=== PATIENT | male | born 1935 | race African-American/Black ===

== ENCOUNTER 2020-02-11 21:13 | Inpatient (IN) | payer MEDICARE, OTHER ==
[2020-02-11] MEDS ORDERED: Acetaminophen 500 MG TAB ONE (22:45)
[2020-02-12] MEDS ORDERED: Ondansetron PF 4 MG/2 ML Vial IVP PRN (00:03)
[2020-02-12] MEDS ORDERED: Acetaminophen 325 MG TAB PO PRN (00:03)
[2020-02-12] MEDS ORDERED: Ondansetron ODT 4 MG TAB SL PRN (00:03)
[2020-02-12 00:17] VITALS: BMI 25.0
[2020-02-12] MEDS ORDERED: HumaLOG 300 UNITS/3 ML VIAL SC PRN (01:23)
[2020-02-12] MEDS ORDERED: Dextrose 5% in Water 1,000 ML IV PRN (01:23)
[2020-02-12] MEDS ORDERED: Dextrose 50% Abboject 50 ML SYRINGE SLOW IVP PRN (01:23)
--- NOTE | 2020-02-12 01:32 | PDOC.HHP ---
Hospitalist HPI - History of Present Illness SOB x 2 days History of Present Illness: PCP: Dr. Cottrell The patient is a 84/M with PMH HTN, HLD, DMII, and anemia that presents to the ER for the above complaint. The patient reports developing sob for the past 2 days with associated productive cough, fever and chills. Denies any chest pain, heart palpitations or lower extremity swelling. Denies any wheezing or orthopnea. Denies any recent travel or any sick contacts. Denies any abdominal pain, nausea, vomiting or diarrhea. Has no other complaints at this time. ED Course: [place] T 102.2F, BP 160/67, HR 63, RR 19, Sp02 94% RA Placed on 2L NC improved to 98% RA EKG atrial paced 61 bpm CXR patchy interstitial prominences Chest CT cannot rule out COVID-19 LA 3.2 WBC 4.4 Flu negative COVID pending Na 140 K 5.4 CO2 25 BUN 18 Creatinine 0.87 GFR 90 BNP 81.6 trop negative Given: Rocephin 2gm IVPB Azith 500 mg IVPB 2L NS at [place] [facility] Tylenol 1gm Allergies: NKDA Home Medications: 1. Losartan 50mg po q am 2. ASA 81 mg po q am 3. Simvastatin 10mg po q hs 4. Metformin 500mg po BID Hospitalist ROS - Review of Systems Constitutional: reports: fever, chills, malaise Eyes: denies: pain, vision change, conjunctivae inflammation, eyelid inflammation, redness, other ENT: denies: ear pain, ear discharge, nose pain, nose discharge, nose congestion , mouth pain, mouth swelling, throat pain, throat swelling, other Respiratory: reports: cough, shortness of breath, sputum. denies: hemoptysis Cardiovascular: denies: chest pain, palpitations, orthopnea, paroxysmal noc. dyspnea, edema, light headedness, other Gastrointestinal: denies: nausea, vomiting, abdominal pain, diarrhea, constipation, melena, hematochezia, other Genitourinary: denies: dysuria, frequency, incontinence, hematuria, retention, other Skin: denies: rash, bruising Neurological: denies: numbness, incoordination, change in speech Hospitalist History - Past Medical History Source: patient Cardiac: reports: HTN, Hyperlipidemia Heme/Onc: reports: Anemia NOS Endocrine: reports: Diabetes (type II) - Past Surgical History Past Surgical History: reports: Other (Pacemaker 2015) - Social History Smoking Status: Never smoker Alcohol: reports: None Drugs: reports: none Living Situation: With Family Occupation: Lives with grandson in [facility], retired Activity level: uses cane/walker - Exam General Appearance: NAD Eye: anicteric sclera ENT: normocephalic atraumatic Neck: supple, no JVD Heart: RRR, no murmur, no gallops, no rubs, normal peripheral pulses Respiratory: no tachypnea, rales, rhonchi Gastrointestinal: soft, non-tender, non-distended, normal bowel sounds, no guarding, no rigidity Extremities: no cyanosis, no edema Neurological: no focal deficits Psychiatric: normal affect, A&O x 3 Hospitalist Results - EKG Interpretation EKG: atrial paced 61 bpm - Radiology Interpretation Chest x-ray Status: report reviewed by me CT scan - chest Status: report reviewed by me Hospitalist H&P A/P - Problem (1) Pneumonia Code(s): J18.9 - PNEUMONIA, UNSPECIFIED ORGANISM Status: Acute Assessment and Plan: Admit to medical floor, observation status Expected length of stay < 2 midnights Patient given rocephin, azithromycin and 2L NS in ER Continue rocephin and azithromycin IVBP Nebs and tylenol prn COVID and blood culture pending LA reflex pending (2) Sepsis Code(s): A41.9 - SEPSIS, UNSPECIFIED ORGANISM Status: Acute Assessment and Plan: LA 3.2, reflex pending Blood CX pending Received 30mg/kg IVF resuscitation in ER Will continue Rocephin and azithromycin IVPB Await blood cx and COVID testing results (3) Suspected COVID-19 virus infection Code(s): Z20.828 - CONTACT W AND EXPOSURE TO OTH VIRAL COMMUNICABLE DISEASES Status: Acute Assessment and Plan: Droplet precautions COVID test results pending Continue Azithromycin Oxygen prn Supportive care. (4) Hyperkalemia Code(s): E87.5 - HYPERKALEMIA Status: Acute Assessment and Plan: Mildly elevated, likely secondary to acidosis No EKG changes patient received 2L NS Will recheck BMP in am (5) HTN (hypertension) Code(s): I10 - ESSENTIAL (PRIMARY) HYPERTENSION Status: Chronic Assessment and Plan: Patient takes losartan 50mg q day Patient blood pressure mildly elevated Kidney fx stable Will restart home dose of losartan in am. Will monitor blood pressure. (6) DMII (diabetes mellitus, type 2) Status: Chronic Assessment and Plan: Patient takes metformin 500mg po BID Will hold for now Mild sliding scale AC/HS accuchecks (7) HLD (hyperlipidemia) Code(s): E78.5 - HYPERLIPIDEMIA, UNSPECIFIED Status: Chronic Assessment and Plan: Will restart home med simvastatin 10mg po q hs (8) Anemia Code(s): D64.9 - ANEMIA, UNSPECIFIED Status: Chronic Assessment and Plan: Stable, chronic Will Recheck CBC in am - Plan Plan: Consult walking program GI prophylaxis SCDs for DVT prophylaxis Full Code DPOA is Sara toth at [phone]. Discussed case with Dr. Miller
[2020-02-12 05:34] LABS: #Lymphocytes 0.6 thou/uL (1.20-3.40); #Monocytes 0.3 thou/uL (0.11-0.59); #Neutrophils 2.5 thou/uL (1.40-6.50); %Basophils 0.5 % (0.0-1.0); %Eosinophils 1.3 % (0.0-10.0); %Lymphocytes 18.5 % (21.0-51.0); %Monocytes 7.9 % (0.0-10.0); %Neutrophils 71.8 % (42.0-75.0); Hemoglobin 10.5 g/dL (14.0-18.0); Mean Corpuscular HGB CONC 30.2 g/dL (32.0-36.0); Mean Corpuscular Hemoglobin 27.4 pg (27.0-31.0); Mean Corpuscular Volume 90.7 fL (78.0-98.0); Mean Platelet Volume 8.8 fL (7.4-10.4); Platelet Count 167 thou/uL (130-400); RBC Distribution Width 14.2 % (11.5-14.5); Red Blood Cell (RBC) Count 3.83 mill/uL (4.70-6.10); White Blood Cell (WBC) Count 3.4 thou/uL (4.8-10.8)
[2020-02-12 05:49] LABS: Anion Gap 16 mmol/L (10-20); BUN (Urea Nitrogen) 11 mg/dL (8.4-25.7); Calc. Creatinine Clearance 82 mL/min (70-130); Calcium 8.8 mg/dL (7.8-10.44); Carbon Dioxide 19 mmol/L (23-31); Chloride 106 mmol/L (98-107); Estimated GFR-MDRD Greater than 90; Glucose 94 mg/dL (83-110); Potassium 4.6 mmol/L (3.5-5.1); Sodium 136 mmol/L (136-145)
[2020-02-12] MEDS: Famotidine 20 MG TAB PO SCH ×2 (08:12→19:45)
[2020-02-12] MEDS: Aspirin Chewable 81 MG TAB PO SCH (08:12)
[2020-02-12] MEDS: Losartan 25 MG TAB PO SCH (08:12)
[2020-02-12] MEDS: Ferrous Gluconate 324 MG TAB PO SCH ×2 (08:12→19:46)
[2020-02-12] MEDS: Simvastatin 20 MG TAB PO SCH (08:12)
--- NOTE | 2020-02-12 16:21 | PDOC.HOSPP ---
- Subjective Encounter Date: 02/12/20 Encounter Time: 16:19 Subjective: Mr. Fish was seen today in follow-up of pneumonia, He does not have any complaints. He says he feels better, less cough and shortness of breath, and less chest pain. He says his appetite is good. - Objective Vital Signs & Weight: Vital Signs (12 hours) Temp Pulse Resp BP BP Pulse Ox 02/12/20 12:00 99.1 F 63 16 160/68 H 91 L 02/12/20 09:00 99.5 F 64 18 168/71 H 94 L 02/12/20 08:00 94 L Weight Weight 160 lb 3.2 oz I&O: 02/11/20 02/12/20 02/13/20 06:59 06:59 06:59 Output Total 750 Balance -750 Result Diagrams: 02/12/20 05:21 02/12/20 05:21 Additional Labs: Accuchecks 02/12/20 12:23 POC Glucose 127 H Hospitalist ROS - Medication Medications: Active Medications Generic Name Dose Route Start Last Admin Trade Name Saurabh PRN Reason Stop Dose Admin Aspirin 81 mg 02/12/20 09:00 02/12/20 08:12 Aspirin Chewable PO 81 mg DAILY SAUMYA Administration Famotidine 20 mg 02/12/20 09:00 02/12/20 08:12 Pepcid PO 20 mg BID SAUMYA Administration Ferrous Gluconate 325 mg 02/12/20 09:00 02/12/20 08:12 Fergon PO 324 mg BID SAUMYA Administration Losartan Potassium 50 mg 02/12/20 09:00 02/12/20 08:12 Cozaar PO 50 mg DAILY SAUMYA Administration Simvastatin 10 mg 02/12/20 09:00 02/12/20 08:12 Zocor PO 10 mg QAM SAUMYA Administration Hosp A/P (1) Pneumonia Code(s): J18.9 - PNEUMONIA, UNSPECIFIED ORGANISM Status: Acute (2) Suspected COVID-19 virus infection Code(s): Z20.828 - CONTACT W AND EXPOSURE TO OTH VIRAL COMMUNICABLE DISEASES Status: Acute (3) DMII (diabetes mellitus, type 2) Status: Chronic (4) HTN (hypertension) Code(s): I10 - ESSENTIAL (PRIMARY) HYPERTENSION Status: Chronic - Plan * Pneumonia- community acquired- continue Rocephin and Azithromycin * HTN- blood pressure is slightly elevated- continue Losartan and PRN medications * DM- blood glucose is stable * Await COVID-19 screen
[2020-02-12] MEDS: HumaLOG 300 UNITS/3 ML VIAL SC PRN (17:37)
[2020-02-12] MEDS: Acetaminophen 325 MG TAB PO PRN (17:37)
[2020-02-12 19:40] LABS: PTT 30.9 SEC (22.9-36.1); Prothrombin Time 13.3 SEC (12.0-14.7)
[2020-02-12] MEDS: Azithromycin 500 MG in Sodium Chloride 0.9% 250 ML 250 ML IVPB SCH (19:43)
[2020-02-12] MEDS: cefTRIAXone\\ROCEPHIN 2 GM in Sodium Chloride 0.9% 100 ML IVPB SCH (19:44)
[2020-02-13] MEDS: Acetaminophen 325 MG TAB PO PRN ×2 (03:28→19:50)
[2020-02-13] MEDS ORDERED: hydrALAZINE 20 MG/ML VIAL SLOW IVP PRN (04:06)
[2020-02-13 05:31] LABS: #Eosinphils 0.1 thou/uL (0.0-0.7); #Lymphocytes 0.6 thou/uL (1.20-3.40); #Monocytes 0.4 thou/uL (0.11-0.59); #Neutrophils 2.6 thou/uL (1.40-6.50); %Basophils 0.5 % (0.0-1.0); %Lymphocytes 16.2 % (21.0-51.0); %Monocytes 9.8 % (0.0-10.0); %Neutrophils 71.5 % (42.0-75.0); Hemoglobin 10.8 g/dL (14.0-18.0); Mean Corpuscular HGB CONC 31.7 g/dL (32.0-36.0); Mean Corpuscular Hemoglobin 27.7 pg (27.0-31.0); Mean Corpuscular Volume 87.4 fL (78.0-98.0); Platelet Count 194 thou/uL (130-400); RBC Distribution Width 14.1 % (11.5-14.5); Red Blood Cell (RBC) Count 3.89 mill/uL (4.70-6.10); White Blood Cell (WBC) Count 3.6 thou/uL (4.8-10.8)
[2020-02-13 05:35] LABS: Prothrombin Time 13.4 SEC (12.0-14.7)
[2020-02-13 05:36] LABS: PTT 31.8 SEC (22.9-36.1)
[2020-02-13 06:02] LABS: ALT (SGPT) 23 U/L (8-55); AST (SGOT) 45 U/L (5-34); Albumin 3.7 g/dL (3.4-4.8); Alkaline Phosphatase 51 U/L (40-110); Anion Gap 13 mmol/L (10-20); BUN (Urea Nitrogen) 9 mg/dL (8.4-25.7); Bilirubin, Total 0.5 mg/dL (0.2-1.2); Calc. Creatinine Clearance 75 mL/min (70-130); Calcium 9.1 mg/dL (7.8-10.44); Carbon Dioxide 26 mmol/L (23-31); Chloride 103 mmol/L (98-107); Estimated GFR-MDRD Greater than 90; Globulin 3.4 g/dL (2.4-3.5); Glucose 115 mg/dL (83-110); Potassium 3.9 mmol/L (3.5-5.1); Protein, Total 7.1 g/dL (5.8-8.1); Sodium 138 mmol/L (136-145)
[2020-02-13] MEDS: Famotidine 20 MG TAB PO SCH ×2 (08:12→19:50)
[2020-02-13] MEDS: Aspirin Chewable 81 MG TAB PO SCH (08:12)
[2020-02-13] MEDS: Losartan 25 MG TAB PO SCH (08:12)
[2020-02-13] MEDS: Simvastatin 20 MG TAB PO SCH (08:15)
[2020-02-13] MEDS: Ferrous Gluconate 324 MG TAB PO SCH ×2 (08:15→19:50)
--- NOTE | 2020-02-13 09:57 | PDOC.HOSPP ---
- Subjective Encounter Date: 02/13/20 Encounter Time: 09:55 Subjective: Mr. Fish was seen today in follow-up of COVID - 19 positive pneumonia. He says he is breathing a little better. He denies chest pain , no diarrhea, no chest pain, or extremity weakness. He has not gotten out of bed yet. (He tells me his son tested COVID-19 positive, and is in self quarantine. He tells me he believes his son is doing ok, he has a cough and phlem, but his symptoms have not yet been a week. ) - Objective Vital Signs & Weight: Vital Signs (12 hours) Temp Pulse Resp BP Pulse Ox 02/13/20 06:02 98.9 F 143/64 H 02/13/20 04:00 100.3 F H 70 16 172/77 H 93 L 02/12/20 23:18 99.5 F 59 L 16 163/68 H 100 Weight Weight 160 lb 3.2 oz I&O: 02/12/20 02/13/20 02/14/20 06:59 06:59 06:59 Intake Total 350 Output Total 750 800 Balance -750 -450 Result Diagrams: 02/13/20 05:12 02/13/20 05:12 Additional Labs: Accuchecks 02/13/20 02/12/20 02/12/20 03:46 19:57 17:17 POC Glucose 126 H 133 H 253 H 02/12/20 12:23 POC Glucose 127 H Hospitalist ROS - Medication Medications: Active Medications Generic Name Dose Route Start Last Admin Trade Name Freq PRN Reason Stop Dose Admin Acetaminophen 650 mg 02/12/20 16:19 02/13/20 03:28 Tylenol PO 650 mg Q4H PRN Administration Headache/Fever or Pain Aspirin 81 mg 02/12/20 09:00 02/13/20 08:12 Aspirin Chewable PO 81 mg DAILY SAUMYA Administration Famotidine 20 mg 02/12/20 09:00 02/13/20 08:12 Pepcid PO 20 mg BID SAUMYA Administration Ferrous Gluconate 324 mg 02/13/20 09:00 02/13/20 08:15 Fergon PO 324 mg BID SAUMYA Administration Azithromycin 500 mg/ Sodium 250 mls @ 250 mls/hr 02/12/20 21:00 02/12/20 19: 43 Chloride IVPB 250 mls Q24HR SAUMYA Administration Ceftriaxone Sodium 2 gm/ 100 mls @ 200 mls/hr 02/12/20 21:00 02/12/20 19:44 Sodium Chloride IVPB 100 mls Q24HR SAUMYA Administration Insulin Human Lispro 0 units 02/12/20 01:23 02/12/20 17:37 Humalog SC 4 unit .MILD SLIDING SCALE PRN Administration Mild Correctional Scale Losartan Potassium 50 mg 02/12/20 09:00 02/13/20 08:12 Cozaar PO 50 mg DAILY SAUMYA Administration Simvastatin 10 mg 02/12/20 09:00 02/13/20 08:15 Zocor PO 10 mg QAM SAUMYA Administration - Exam General Appearance: awake alert Eye: PERRL, anicteric sclera Heart: RRR, no murmur, no gallops, no rubs, normal peripheral pulses Respiratory: rales (+ rales at both bases, and occasional rhonchi, no wheezing) Gastrointestinal: soft, non-tender, non-distended, normal bowel sounds, no palpable masses, no hepatomegaly Extremities: no cyanosis, no clubbing, no edema (+ palpable posterior tibial pulses, feet are warm and dry, no lesions) Neurological: no weakness Psychiatric: A&O x 3 (He is oriented to person, place and time, he knows he is at [facility]. He tells me it is the 4th Month, and that it is 2019.) Hosp A/P (1) COVID-19 virus infection Code(s): U07.1 - COVID-19 Status: Acute (2) Pneumonia Code(s): J18.9 - PNEUMONIA, UNSPECIFIED ORGANISM Status: Acute (3) DMII (diabetes mellitus, type 2) Status: Chronic (4) HTN (hypertension) Code(s): I10 - ESSENTIAL (PRIMARY) HYPERTENSION Status: Chronic - Plan * Pneumonia- COVID-19 positive- Nebs, have been discontinued, and he never received a dose. He has not had any wheezing * Will continue Azithromycin, and Rocephin and avoid steroids * I have called his grandson, with the patient's permission, and informed him on the patient's COVID status. He confirms that his father is also COVID -19 positive ( the patient's son) * ID consult has been placed to help with recommendations regarding treatment * HTN- blood pressure is slightly elevated- continue Losartan and PRN medications * DM- blood glucose is stable
[2020-02-13] MEDS: Azithromycin 500 MG in Sodium Chloride 0.9% 250 ML 250 ML IVPB SCH (19:49)
[2020-02-13] MEDS: cefTRIAXone\\ROCEPHIN 2 GM in Sodium Chloride 0.9% 100 ML IVPB SCH (19:50)
--- NOTE | 2020-02-13 21:19 | CON ---
DATE OF CONSULTATION: 02/13/2020 REASON FOR CONSULTATION: COVID-19 pneumonia. HISTORY OF PRESENT ILLNESS: An 84-year-old with history of type 2 diabetes, hypertension, chronic smoking, sigmoid diverticulosis, who has been evaluated at the beginning of January because of abdominal pain. The patient had an abdomen and pelvis CT on January 22 with no evidence of urinary tract obstruction. Apparently, he had a prostate evaluation, but other than that, he was in his usual state of health until February 10 when he developed worsening coughing spells. This was the same day that his son developed the same similar symptoms. His initial findings included temperature 99.2, blood pressure 139/67, and his O2 saturations were 90% on room air and then 97% on room air. He had nonspecific ground-glass opacities in chest x-ray and CT scan, so the patient was transferred and he was admitted. COVID test was positive. He is currently in the 4th floor under isolation precautions. He is awake, alert, watching a basketball game. He denies any headaches. No visual symptoms, sore throat, odynophagia, or dysphagia. His sense of smell seems to have returned reportedly. Not coughing much. No dyspnea. No chest pain. No abdominal pain. Had some loose stools earlier. Voiding without difficulty. No joint symptoms or muscle pain. 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 SOCIAL HISTORY: Retired. Lives in [place] with son and grandson. Quit smoking a few years ago. Does not drink alcoholic beverages. ALLERGIES: NONE. FAMILY HISTORY: Type 2 diabetes. CURRENT MEDICATIONS: 1. Aspirin. 2. Azithromycin. 3. Ceftriaxone. 4. Pepcid. 5. Glucagon. 6. Apresoline. 7. Insulin. 8. Cozaar. 9. Zocor. PHYSICAL EXAMINATION: VITAL SIGNS: T-max 101.8, it is currently 100, blood pressure 150/59, pulse 60, respirations 16, and O2 saturation 97%. SKIN: IV access is noted. No Castillo catheter. No lymphadenopathy. HEENT: Ocular movements conjugate. Sclerae white. Pupils are equal. Conjunctivae normal. Oral cavity not particularly remarkable except for a lot of missing teeth and remainder with a lot of decay. NECK: Supple. No jugular vein distention. LUNGS: With fairly clear breath sounds. HEART: S1 and S2, regular rate. No S3 or S4. Pacer pocket site is normal. ABDOMEN: Soft, not distended or tender. No ascites. No bladder distention. No genital abnormalities. EXTREMITIES: Pulses are 1+ in dorsalis pedis. No edema. Moves all extremities equally. NEUROLOGIC: He is awake, oriented, follows commands. Does not appear to be in distress. Speech is normal. He is able to speak in full sentences without any difficulty. LABORATORY DATA: White cell count 3.4, hemoglobin 10.5, platelets 167, 71% neutrophils. Total lymphocyte count 600. INR 1.0. Sodium 138, creatinine 0.77. CRP was 6.6, now 7.8. AST 45, ALT 23, and albumin 3.7. COVID-19 PCR positive. The imaging findings discussed above, the ground-glass opacities. ASSESSMENT: Type 2 diabetes, hypertension, BPH, bradycardia with pacemaker, COVID-19 pneumonia. DISCUSSION: The patient has intrafamilial spread, which is the usual scenario in the community transmission other than areas of high prevalence such as plants in nursing homes. This is the 4th or 5th day of illness since symptoms developed and this illness has a protracted clinical course and deterioration to severe and critical cases usually happens by the 5th to the 12th day after onset of illness, which is one of the frustrating aspects of this disease is the inability to clearly predict the clinical course early on. I would advise every other day checking of D-dimer, CRP, ferritin, and I think tomorrow we can discontinue azithromycin and Rocephin since those patients usually only a very small minority have superimposed pneumonia and usually after more critical phases of the illness. The sequence of oxygen supplementation is simple nasal cannula and then if needed Venturi mask and then if more higher flow is needed than high-flow nasal cannula, hopefully we are not going to need that. Discharge planning is a difficult decision since a lot of times patients deteriorate after being discharged. The followup usually is not very easy to implement, and so I think we are probably going to have to wear on the side of caution and only consider discharge planning and once there is clear-cut stability or improvement of inflammatory markers in oximetry over the course of a few days, that is as long as the patient does not develop deterioration. Job ID: [id number]
[2020-02-14 06:16] LABS: ALT (SGPT) 23 U/L (8-55); AST (SGOT) 43 U/L (5-34); Albumin 3.6 g/dL (3.4-4.8); Alkaline Phosphatase 50 U/L (40-110); Anion Gap 14 mmol/L (10-20); BUN (Urea Nitrogen) 9 mg/dL (8.4-25.7); Bilirubin, Total 0.4 mg/dL (0.2-1.2); Calc. Creatinine Clearance 79 mL/min (70-130); Carbon Dioxide 24 mmol/L (23-31); Chloride 103 mmol/L (98-107); Estimated GFR-MDRD Greater than 90; Globulin 3.5 g/dL (2.4-3.5); Glucose 105 mg/dL (83-110); Hemoglobin 10.7 g/dL (14.0-18.0); Mean Corpuscular Hemoglobin 27.5 pg (27.0-31.0); Mean Corpuscular Volume 88.9 fL (78.0-98.0); Mean Platelet Volume 8.1 fL (7.4-10.4); Platelet Count 214 thou/uL (130-400); Protein, Total 7.1 g/dL (5.8-8.1); RBC Distribution Width 14.3 % (11.5-14.5); Red Blood Cell (RBC) Count 3.89 mill/uL (4.70-6.10); Sodium 137 mmol/L (136-145); White Blood Cell (WBC) Count 4.5 thou/uL (4.8-10.8)
[2020-02-14 06:53] LABS: Band 15 % (5-11); Eosinophils 1 % (0-10); Lymphocytes 23 % (21-51); MDiff Complete? YES; Monocytes 6 % (0-10); Neutrophil 55 % (42-75)
[2020-02-14] MEDS: Ferrous Gluconate 324 MG TAB PO SCH ×2 (08:07→20:15)
[2020-02-14] MEDS: Simvastatin 20 MG TAB PO SCH (08:07)
[2020-02-14] MEDS: Losartan 25 MG TAB PO SCH (08:07)
[2020-02-14] MEDS: Famotidine 20 MG TAB PO SCH ×2 (08:07→20:15)
[2020-02-14] MEDS: Aspirin Chewable 81 MG TAB PO SCH (08:07)
[2020-02-14] MEDS: Acetaminophen 325 MG TAB PO PRN ×2 (08:08→18:02)
[2020-02-14] MEDS: Enoxaparin Sodium 40 MG/0.4 ML SYRINGE SC SCH (08:12)
--- NOTE | 2020-02-14 10:42 | PDOC.HOSPP ---
- Subjective Encounter Date: 02/14/20 Encounter Time: 10:40 Subjective: Mr. Fish was seen today in follow-up of COVID positive Pneumonia. He says he feels ok. He feels the cough has improved. He denies chest pain or shortness of breath. He continues to have a good appetite. - Objective Vital Signs & Weight: Vital Signs (12 hours) Temp Pulse Resp BP Pulse Ox 02/14/20 08:00 99.1 F 67 18 175/61 H 93 L 02/14/20 04:00 99.8 F H 64 16 161/73 H 96 02/14/20 00:08 98.5 F 60 16 128/69 98 Weight Weight 160 lb 3.2 oz I&O: 02/13/20 02/14/20 02/15/20 06:59 06:59 06:59 Intake Total 350 1470 Output Total 800 570 Balance -450 900 Result Diagrams: 02/14/20 05:47 02/14/20 05:47 Additional Labs: Accuchecks 02/14/20 02/13/20 02/13/20 05:17 20:00 17:45 POC Glucose 102 158 H 129 H 02/13/20 12:43 POC Glucose 126 H Hospitalist ROS - Medication Medications: Active Medications Generic Name Dose Route Start Last Admin Trade Name Freq PRN Reason Stop Dose Admin Acetaminophen 650 mg 02/12/20 16:19 02/14/20 08:08 Tylenol PO 650 mg Q4H PRN Administration Headache/Fever or Pain Aspirin 81 mg 02/12/20 09:00 02/14/20 08:07 Aspirin Chewable PO 81 mg DAILY SAUMYA Administration Enoxaparin Sodium 40 mg 02/14/20 09:00 02/14/20 08:12 Lovenox SC 40 mg 0900 SAUMYA Administration Famotidine 20 mg 02/12/20 09:00 02/14/20 08:07 Pepcid PO 20 mg BID SAUMYA Administration Ferrous Gluconate 324 mg 02/13/20 09:00 02/14/20 08:07 Fergon PO 324 mg BID SAUMYA Administration Azithromycin 500 mg/ Sodium 250 mls @ 250 mls/hr 02/12/20 21:00 02/13/20 19: 49 Chloride IVPB 250 mls Q24HR SAUMYA Administration Ceftriaxone Sodium 2 gm/ 100 mls @ 200 mls/hr 02/12/20 21:00 02/13/20 19:50 Sodium Chloride IVPB 100 mls Q24HR SAUMYA Administration Insulin Human Lispro 0 units 02/12/20 01:23 02/12/20 17:37 Humalog SC 4 unit .MILD SLIDING SCALE PRN Administration Mild Correctional Scale Losartan Potassium 50 mg 02/12/20 09:00 02/14/20 08:07 Cozaar PO 50 mg DAILY SAUMYA Administration Simvastatin 10 mg 02/12/20 09:00 02/14/20 08:07 Zocor PO 10 mg QAM SAUMYA Administration - Exam Eye: PERRL Heart: RRR, no murmur, no gallops, no rubs, normal peripheral pulses Respiratory: rales (+ rales throughout, minimal rhonchi) Gastrointestinal: soft, non-tender, non-distended, normal bowel sounds, no palpable masses, no hepatomegaly Extremities: no cyanosis, no edema Hosp A/P (1) COVID-19 virus infection Code(s): U07.1 - COVID-19 Status: Acute (2) Pneumonia Code(s): J18.9 - PNEUMONIA, UNSPECIFIED ORGANISM Status: Acute (3) DMII (diabetes mellitus, type 2) Status: Chronic (4) HTN (hypertension) Code(s): I10 - ESSENTIAL (PRIMARY) HYPERTENSION Status: Chronic - Plan * Pneumonia- COVID-19 positive-Continue supportive care- recommendations from ID appreciated * Will discontinue Azithromycin and Rocephin after todays dose * HTN- blood pressure is slightly elevated- continue Losartan and will add Amlodipine * DM- blood glucose is stable * Will continue to monitor coagulation studies and inflammatory markers periodically
--- NOTE | 2020-02-14 15:42 | PQF ---
CLINICAL DOCUMENTATION IMPROVEMENT CLARIFICATION FORM: ICD-10 Updated PLEASE DO AN ADDENDUM TO THE PROGRESS NOTE WITH ANY DOCUMENTATION UPDATES OR ADDITIONS AND CARRY THROUGH TO DC SUMMARY. THANK YOU. DATE: 02/14/20 ATTN: DR. CORONEL Please exercise your independent, professional judgment in responding to the clarification form. Clinical indicators are provided on the bottom of this form for your review Please check appropriate box(s) to clarify if the following diagnosis has been ruled in or ruled out: "SEPSIS" [ X] Ruled in diagnosis Sepsis due to COVID -19 Pneumonia [ X] Continue to treat [ ] Resolved [ ] Ruled out diagnosis [ ] Improving [ ] Cannot rule out diagnosis [ ] Other diagnosis [ ] Unable to determine In addition, please specify: Present on Admission (POA): [ X ] Yes [ ] No [ ] Unable to determine For continuity of documentation, please document condition throughout progress notes and discharge summary. Thank You. CLINICAL INDICATORS - SIGNS / SYMPTOMS / LABS / RESULTS AND LOCATION IN MR H&P 02/11: "SEPSIS" WBC 02/11: 3.4 CRP 02/12: 7.83 RISKS: COVID + WITH PNEUMONIA (H&P) TREATMENT: IV ZITHROMAX (02/11-PRESENT) IV ROCEPHIN (02/11-PRESENT) ID CONSULT 02/12 [facility] [employer] Relations Director [employer] Winform Viewer(This form is maintained as a part of the permanent medical record) 2014 [employer]. All Rights Reserved [email or web address] [employer] [facility]
--- NOTE | 2020-02-14 16:51 | PRG ---
DATE OF SERVICE: 02/14/2020 SUBJECTIVE: Mr. Fish is feeling all right and has some improvement in cough. No diarrhea. No abdominal pain. No dysuria. No vomiting. OBJECTIVE: VITAL SIGNS: T-max 101.4 yesterday at 8 p.m., is now 99.1; blood pressure 140/70; pulse 82; respirations 16; O2 saturation 94 on 2 L. LUNGS: Symmetric air entry. HEART: S1 and S2, regular rate. ABDOMEN: Soft, not distended. EXTREMITIES: Moves extremities equally. No edema. LABORATORY DATA: White cell count 4.5, hemoglobin 10.7, and platelets 214 lymphocytes. Chemistry was not particularly remarkable. Inflammatory markers and D-dimer need to be repeated. ASSESSMENT AND DISCUSSION: Type 2 diabetes, hypertension, bradycardia, pacemaker, COVID-19, pneumonia. This is the 6th day of illness and is about stable at this point. Repeat inflammatory markers and D-dimer. Probably discontinue antimicrobials at this moment. Job ID: [id number] MTDD
[2020-02-14] MEDS: HumaLOG 300 UNITS/3 ML VIAL SC PRN (18:02)
[2020-02-15 06:01] LABS: Hemoglobin 10.9 g/dL (14.0-18.0); Mean Corpuscular HGB CONC 31.7 g/dL (32.0-36.0); Mean Corpuscular Hemoglobin 27.6 pg (27.0-31.0); Mean Corpuscular Volume 87.1 fL (78.0-98.0); Mean Platelet Volume 7.8 fL (7.4-10.4); Platelet Count 285 thou/uL (130-400); RBC Distribution Width 14.1 % (11.5-14.5); Red Blood Cell (RBC) Count 3.93 mill/uL (4.70-6.10); White Blood Cell (WBC) Count 6.4 thou/uL (4.8-10.8)
[2020-02-15 06:03] LABS: Fibrinogen 653 mg/dL (253-463)
[2020-02-15 06:04] LABS: INR-International Normal Ratio 1.1; PTT 33.7 SEC (22.9-36.1); Prothrombin Time 13.7 SEC (12.0-14.7)
[2020-02-15 06:05] LABS: D-Dimer Test 2.93 *mcg/mL (0.27-0.43); FSP-Qualitative Normal (Normal)
[2020-02-15 06:06] LABS: Platelet Count 277 thou/uL (130-400)
[2020-02-15 06:22] LABS: Band 8 % (5-11); Eosinophils 5 % (0-10); Lymphocytes 10 % (21-51); MDiff Complete? YES; Monocytes 3 % (0-10); Neutrophil 72 % (42-75); Reactive Lymphocytes 2 % (0-10)
[2020-02-15 06:24] LABS: ALT (SGPT) 29 U/L (8-55); AST (SGOT) 47 U/L (5-34); Albumin 3.6 g/dL (3.4-4.8); Alkaline Phosphatase 56 U/L (40-110); Anion Gap 13 mmol/L (10-20); BUN (Urea Nitrogen) 8 mg/dL (8.4-25.7); Bilirubin, Total 0.5 mg/dL (0.2-1.2); Calc. Creatinine Clearance 78 mL/min (70-130); Calcium 9.3 mg/dL (7.8-10.44); Carbon Dioxide 26 mmol/L (23-31); Chloride 101 mmol/L (98-107); Estimated GFR-MDRD Greater than 90; Globulin 3.8 g/dL (2.4-3.5); Glucose 129 mg/dL (83-110); Potassium 3.8 mmol/L (3.5-5.1); Protein, Total 7.4 g/dL (5.8-8.1); Sodium 136 mmol/L (136-145)
[2020-02-15] MEDS: Simvastatin 20 MG TAB PO SCH (07:34)
[2020-02-15] MEDS: Aspirin Chewable 81 MG TAB PO SCH (07:34)
[2020-02-15] MEDS: Ferrous Gluconate 324 MG TAB PO SCH ×2 (07:34→20:05)
[2020-02-15] MEDS: Enoxaparin Sodium 40 MG/0.4 ML SYRINGE SC SCH (07:35)
[2020-02-15] MEDS: Losartan 25 MG TAB PO SCH (07:35)
[2020-02-15] MEDS: Famotidine 20 MG TAB PO SCH ×2 (07:35→20:05)
[2020-02-15] MEDS: HumaLOG 300 UNITS/3 ML VIAL SC PRN (12:49)
--- NOTE | 2020-02-15 13:11 | PDOC.HOSPP ---
- Subjective Encounter Date: 02/15/20 Encounter Time: 13:09 Subjective: Mr. Fish was seen today in follow-up of COVID -19 pneumonia. He says he feels fine. He denies dyspnea, and chest pain. He says he has an occasional cough. - Objective Vital Signs & Weight: Vital Signs (12 hours) Temp Pulse Resp BP BP Pulse Ox 02/15/20 08:00 98.5 F 69 16 176/73 H 94 L 02/15/20 05:05 99.5 F 75 18 174/74 H 95 Weight Weight 160 lb 3.2 oz I&O: 02/14/20 02/15/20 02/16/20 06:59 06:59 06:59 Intake Total 1470 Output Total 570 Balance 900 Result Diagrams: 02/15/20 05:21 02/15/20 05:21 Additional Labs: Accuchecks 02/15/20 02/15/20 02/14/20 11:12 05:14 20:21 POC Glucose 186 H 142 H 136 H 02/14/20 15:50 POC Glucose 192 H Hospitalist ROS - Medication Medications: Active Medications Generic Name Dose Route Start Last Admin Trade Name Freq PRN Reason Stop Dose Admin Acetaminophen 650 mg 02/12/20 16:19 02/14/20 18:02 Tylenol PO 650 mg Q4H PRN Administration Headache/Fever or Pain Aspirin 81 mg 02/12/20 09:00 02/15/20 07:34 Aspirin Chewable PO 81 mg DAILY SAUMYA Administration Enoxaparin Sodium 40 mg 02/14/20 09:00 02/15/20 07:35 Lovenox SC 40 mg 0900 SAUMYA Administration Famotidine 20 mg 02/12/20 09:00 02/15/20 07:35 Pepcid PO 20 mg BID SAUMYA Administration Ferrous Gluconate 324 mg 02/13/20 09:00 02/15/20 07:34 Fergon PO 324 mg BID SAUMYA Administration Insulin Human Lispro 0 units 02/12/20 01:23 02/14/20 18:02 Humalog SC 2 unit .MILD SLIDING SCALE PRN Administration Mild Correctional Scale Losartan Potassium 50 mg 02/12/20 09:00 02/15/20 07:35 Cozaar PO 50 mg DAILY SAUMYA Administration Simvastatin 10 mg 02/12/20 09:00 02/15/20 07:34 Zocor PO 10 mg QAM SAUMYA Administration - Exam Eye: PERRL Heart: RRR, no murmur, no gallops, no rubs, normal peripheral pulses (+ rales in bilaterally, but a bit less than yesterday, and occasional rhonchi) Gastrointestinal: soft, non-tender, non-distended, normal bowel sounds, no palpable masses, no hepatomegaly Extremities: no cyanosis, no clubbing, no edema Hosp A/P (1) COVID-19 virus infection Code(s): U07.1 - COVID-19 Status: Acute (2) Pneumonia Code(s): J18.9 - PNEUMONIA, UNSPECIFIED ORGANISM Status: Acute (3) DMII (diabetes mellitus, type 2) Status: Chronic (4) HTN (hypertension) Code(s): I10 - ESSENTIAL (PRIMARY) HYPERTENSION Status: Chronic - Plan * Pneumonia- COVID-19 positive-Continue supportive care- recommendations from ID appreciated * Antibiotics have been discontinued * Will optimize nutritional status * HTN- blood pressure is still a bit elevated- will continue Lisinopril and Amlodipine * DM- blood glucose is stable * Will continue to monitor coagulation studies and inflammatory markers periodically
[2020-02-15] MEDS ORDERED: Ascorbic Acid 500 mg Chewable Tablet PO SCH (13:30)
[2020-02-15] MEDS ORDERED: Multivit, Therapeutic 1 TAB PO SCH (13:30)
[2020-02-15] MEDS ORDERED: Zinc Sulfate 220 MG CAP PO SCH (13:30)
--- NOTE | 2020-02-15 14:36 | PRG ---
DATE OF SERVICE: 02/15/2020 SUBJECTIVE: Mr. Morse appears comfortable. He is not coughing much. No chest pain, abdominal pain, or diarrhea. His temperature seems to be trending down lungs are with no crackles or wheezing. S1 and S2, regular rate. Abdomen, soft. Moves all extremities equally. Cognitive function appears to be intact. The D-dimer is a little bit up to 2.93. His inflammatory markers are up too. The CRP is up a bit to 13.45. The ferritin, there is only one measurement. White cell count is 6.4, hemoglobin 10.9, And platelets are 285. Lymphocyte count still low at 0.6, almost 0.7. ASSESSMENT AND DISCUSSION: Type 2 diabetes, hypertension, bradycardia, pacemaker, COVID-19 pneumonia with moderate severity. This is the 7th day of illness. Things are somewhat at a standstill. Again, there is quite significant unpredictability in the course of illness and a quite lengthy duration, so he will have to stick around for a while in view of his risk factors. Job ID: [id number] [facility]
[2020-02-15] MEDS: Amlodipine 5 MG TAB PO SCH (15:20)
[2020-02-15] MEDS: Melatonin 3 MG TAB PO SCH (20:05)
[2020-02-16] MEDS: HumaLOG 300 UNITS/3 ML VIAL SC PRN ×2 (04:54→12:32)
[2020-02-16 06:22] LABS: Hemoglobin 9.9 g/dL (14.0-18.0); Mean Corpuscular Hemoglobin 27.5 pg (27.0-31.0); Mean Corpuscular Volume 88.8 fL (78.0-98.0); Mean Platelet Volume 7.4 fL (7.4-10.4); Platelet Count 338 thou/uL (130-400); RBC Distribution Width 14.1 % (11.5-14.5); Red Blood Cell (RBC) Count 3.58 mill/uL (4.70-6.10); White Blood Cell (WBC) Count 5.2 thou/uL (4.8-10.8)
[2020-02-16 06:52] LABS: Band 13 % (5-11); Eosinophils 3 % (0-10); Lymphocytes 15 % (21-51); MDiff Complete? YES; Monocytes 4 % (0-10); Neutrophil 65 % (42-75)
[2020-02-16] MEDS: Ascorbic Acid 500 mg Chewable Tablet PO SCH (08:47)
[2020-02-16] MEDS: Aspirin Chewable 81 MG TAB PO SCH (08:47)
[2020-02-16] MEDS: Losartan 25 MG TAB PO SCH (08:48)
[2020-02-16] MEDS: Simvastatin 20 MG TAB PO SCH (08:48)
[2020-02-16] MEDS: Famotidine 20 MG TAB PO SCH ×2 (08:48→19:45)
[2020-02-16] MEDS: Ferrous Gluconate 324 MG TAB PO SCH ×2 (08:49→19:45)
[2020-02-16] MEDS: Multivit, Therapeutic 1 TAB PO SCH (08:49)
[2020-02-16] MEDS: Enoxaparin Sodium 40 MG/0.4 ML SYRINGE SC SCH (08:49)
[2020-02-16] MEDS: Zinc Sulfate 220 MG CAP PO SCH (08:50)
--- NOTE | 2020-02-16 11:54 | PDOC.HOSPP ---
- Subjective Encounter Date: 02/16/20 Encounter Time: 11:53 Subjective: Mr. Fish was seen today in follow-up of COVID + Pneumonia. He says he feels better. He says he is breathing fine, and continues to have some cough, but says it is improving. - Objective Vital Signs & Weight: Vital Signs (12 hours) Temp Pulse Resp BP BP Pulse Ox 02/16/20 09:15 99.1 F 69 18 154/90 H 93 L 02/16/20 08:32 93 L 02/16/20 07:17 92 L 02/16/20 05:17 92 L 02/16/20 04:00 99.1 F 72 20 143/67 H 94 L 02/16/20 00:00 98.8 F 69 20 141/68 H 92 L Weight Weight 160 lb 3.2 oz I&O: 02/15/20 02/16/20 02/17/20 06:59 06:59 06:59 Intake Total 100 Balance 100 Result Diagrams: 02/16/20 05:51 02/15/20 05:21 Additional Labs: Accuchecks 02/16/20 02/15/20 02/15/20 04:56 20:26 17:20 POC Glucose 170 H 182 H 181 H 02/15/20 11:12 POC Glucose 186 H Hospitalist ROS - Medication Medications: Active Medications Generic Name Dose Route Start Last Admin Trade Name Freq PRN Reason Stop Dose Admin Acetaminophen 650 mg 02/12/20 16:19 02/14/20 18:02 Tylenol PO 650 mg Q4H PRN Administration Headache/Fever or Pain Amlodipine Besylate 5 mg 02/15/20 15:00 02/15/20 15:20 Norvasc PO 5 mg 1500 SAUMYA Administration Ascorbic Acid 1,000 mg 02/16/20 09:00 02/16/20 08:47 Vitamin C PO 1,000 mg DAILY SAUMYA Administration Aspirin 81 mg 02/12/20 09:00 02/16/20 08:47 Aspirin Chewable PO 81 mg DAILY SAUMYA Administration Enoxaparin Sodium 40 mg 02/14/20 09:00 02/16/20 08:49 Lovenox SC 40 mg 0900 SAUMYA Administration Famotidine 20 mg 02/12/20 09:00 02/16/20 08:48 Pepcid PO 20 mg BID SAUMYA Administration Ferrous Gluconate 324 mg 02/13/20 09:00 02/16/20 08:49 Fergon PO 324 mg BID SAUMYA Administration Insulin Human Lispro 0 units 02/12/20 01:23 02/16/20 04:54 Humalog SC 2 unit .MILD SLIDING SCALE PRN Administration Mild Correctional Scale Losartan Potassium 50 mg 02/12/20 09:00 02/16/20 08:48 Cozaar PO 50 mg DAILY SAUMYA Administration Melatonin 3 mg 02/15/20 21:00 02/15/20 20:05 Melatonin PO 3 mg HS SAUMYA Administration Multivitamins 1 tab 02/16/20 09:00 02/16/20 08:49 Theragran PO 1 tab DAILY SAUMYA Administration Simvastatin 10 mg 02/12/20 09:00 02/16/20 08:48 Zocor PO 10 mg QAM SAUMYA Administration Zinc Sulfate 220 mg 02/16/20 09:00 02/16/20 08:50 Zinc Sulfate PO 220 mg DAILY SAUMYA Administration - Exam Eye: PERRL Heart: RRR, no murmur, no gallops, no rubs, normal peripheral pulses Respiratory: no wheezes, no ronchi, rales (+ rales through out much of his lung rivera bilaterally, but less than yesterday) Gastrointestinal: soft, non-tender, non-distended, normal bowel sounds, no palpable masses, no hepatomegaly Extremities: no cyanosis, no clubbing, no edema Extremities - other findings: pulses are palpable with good capillary refill bilaterally Skin: normal turgor Hosp A/P (1) COVID-19 virus infection Code(s): U07.1 - COVID-19 Status: Acute (2) Pneumonia Code(s): J18.9 - PNEUMONIA, UNSPECIFIED ORGANISM Status: Acute (3) DMII (diabetes mellitus, type 2) Status: Chronic (4) HTN (hypertension) Code(s): I10 - ESSENTIAL (PRIMARY) HYPERTENSION Status: Chronic - Plan * Pneumonia- COVID-19 positive-Continue supportive care- * Will check inflammatory markers in the AM * HTN- blood pressure is trending down * DM- blood glucose is stable * Mobilize, and have ordered PT if available
[2020-02-16] MEDS: Amlodipine 5 MG TAB PO SCH (14:19)
[2020-02-16] MEDS: Acetaminophen 325 MG TAB PO PRN (17:00)
[2020-02-16] MEDS: Melatonin 3 MG TAB PO SCH (19:45)
[2020-02-17] MEDS: Acetaminophen 325 MG TAB PO PRN (04:59)
[2020-02-17 05:37] LABS: #Basophils 0.1 thou/uL (0.0-0.2); #Eosinphils 0.2 thou/uL (0.0-0.7); #Lymphocytes 0.9 thou/uL (1.20-3.40); #Monocytes 0.7 thou/uL (0.11-0.59); #Neutrophils 3.9 thou/uL (1.40-6.50); %Basophils 1.6 % (0.0-1.0); %Lymphocytes 14.7 % (21.0-51.0); %Monocytes 11.5 % (0.0-10.0); %Neutrophils 68.2 % (42.0-75.0); Hemoglobin 10.6 g/dL (14.0-18.0); Mean Corpuscular HGB CONC 30.7 g/dL (32.0-36.0); Mean Corpuscular Hemoglobin 27.4 pg (27.0-31.0); Mean Corpuscular Volume 89.2 fL (78.0-98.0); Mean Platelet Volume 7.2 fL (7.4-10.4); Platelet Count 391 thou/uL (130-400); RBC Distribution Width 14.2 % (11.5-14.5); Red Blood Cell (RBC) Count 3.88 mill/uL (4.70-6.10); White Blood Cell (WBC) Count 5.8 thou/uL (4.8-10.8)
[2020-02-17 05:44] LABS: Fibrinogen 716 mg/dL (253-463)
[2020-02-17 05:45] LABS: INR-International Normal Ratio 1.1; PTT 30.7 SEC (22.9-36.1); Prothrombin Time 13.8 SEC (12.0-14.7)
[2020-02-17 05:46] LABS: D-Dimer Test 2.69 *mcg/mL (0.27-0.43)
[2020-02-17 05:49] LABS: FSP-Qualitative Normal (Normal); Platelet Count 391 thou/uL (130-400)
[2020-02-17 05:59] LABS: Anion Gap 10 mmol/L (10-20); BUN (Urea Nitrogen) 8 mg/dL (8.4-25.7); CRP (Inflammatory) 9.95 mg/dL (= or < 0.5); Calc. Creatinine Clearance 78 mL/min (70-130); Calcium 9.5 mg/dL (7.8-10.44); Carbon Dioxide 30 mmol/L (23-31); Chloride 103 mmol/L (98-107); Estimated GFR-MDRD Greater than 90; Glucose 144 mg/dL (83-110); Potassium 4.1 mmol/L (3.5-5.1); Sodium 139 mmol/L (136-145)
[2020-02-17] MEDS: Enoxaparin Sodium 40 MG/0.4 ML SYRINGE SC SCH (08:21)
[2020-02-17] MEDS: Zinc Sulfate 220 MG CAP PO SCH (08:21)
[2020-02-17] MEDS: Ferrous Gluconate 324 MG TAB PO SCH (08:22)
[2020-02-17] MEDS: Ascorbic Acid 500 mg Chewable Tablet PO SCH (08:22)
[2020-02-17] MEDS: Losartan 25 MG TAB PO SCH (08:22)
[2020-02-17] MEDS: Multivit, Therapeutic 1 TAB PO SCH (08:22)
[2020-02-17] MEDS: Simvastatin 20 MG TAB PO SCH (08:23)
[2020-02-17] MEDS: Famotidine 20 MG TAB PO SCH ×2 (08:23→20:01)
[2020-02-17] MEDS: Aspirin Chewable 81 MG TAB PO SCH (08:23)
--- NOTE | 2020-02-17 09:38 | PDOC.HOSPP ---
- Subjective Encounter Date: 02/17/20 Encounter Time: 09:37 Subjective: Mr. Fish was seen today in follow-up of COVID -19 positive pneumonia. He says he is feeling better. He does not have any complaints. He admits that his breathing has improved, and he is not short of breath. - Objective Vital Signs & Weight: Vital Signs (12 hours) Temp Pulse Resp BP BP Pulse Ox 02/17/20 08:54 98.9 F 72 18 160/66 H 92 L 02/17/20 08:00 92 L 02/17/20 04:00 99.4 F 72 18 144/82 H 97 02/16/20 23:53 98.5 F 68 18 100 Weight Weight 160 lb 3.2 oz I&O: 02/16/20 02/17/20 02/18/20 06:59 06:59 06:59 Intake Total 100 480 Balance 100 480 Result Diagrams: 02/17/20 05:22 02/17/20 05:22 Additional Labs: Accuchecks 02/16/20 02/16/20 02/16/20 19:58 17:00 11:34 POC Glucose 268 H 92 207 H Hospitalist ROS - Medication Medications: Active Medications Generic Name Dose Route Start Last Admin Trade Name Freq PRN Reason Stop Dose Admin Acetaminophen 650 mg 02/12/20 16:19 02/17/20 04:59 Tylenol PO 650 mg Q4H PRN Administration Headache/Fever or Pain Amlodipine Besylate 5 mg 02/15/20 15:00 02/16/20 14:19 Norvasc PO 5 mg 1500 SAUMYA Administration Ascorbic Acid 1,000 mg 02/16/20 09:00 02/17/20 08:22 Vitamin C PO 1,000 mg DAILY SAUMYA Administration Aspirin 81 mg 02/12/20 09:00 02/17/20 08:23 Aspirin Chewable PO 81 mg DAILY SAUMYA Administration Enoxaparin Sodium 40 mg 02/14/20 09:00 02/17/20 08:21 Lovenox SC 40 mg 0900 SAUMYA Administration Famotidine 20 mg 02/12/20 09:00 02/17/20 08:23 Pepcid PO 20 mg BID SAUMYA Administration Ferrous Gluconate 324 mg 02/13/20 09:00 02/17/20 08:22 Fergon PO 324 mg BID SAUMYA Administration Insulin Human Lispro 0 units 02/12/20 01:23 02/16/20 12:32 Humalog SC 3 unit .MILD SLIDING SCALE PRN Administration Mild Correctional Scale Losartan Potassium 50 mg 02/12/20 09:00 02/17/20 08:22 Cozaar PO 50 mg DAILY SAUMYA Administration Melatonin 3 mg 02/15/20 21:00 02/16/20 19:45 Melatonin PO 3 mg HS SAUMYA Administration Multivitamins 1 tab 02/16/20 09:00 02/17/20 08:22 Theragran PO 1 tab DAILY SAUMYA Administration Simvastatin 10 mg 02/12/20 09:00 02/17/20 08:23 Zocor PO 10 mg QAM SAUMYA Administration Zinc Sulfate 220 mg 02/16/20 09:00 02/17/20 08:21 Zinc Sulfate PO 220 mg DAILY SAUMYA Administration - Exam Eye: PERRL Heart: RRR, no murmur, no gallops, no rubs, normal peripheral pulses Respiratory: no wheezes (Rales at both bases, about 1/[address] no ronchi , rales Gastrointestinal: soft, non-tender, non-distended, normal bowel sounds, no palpable masses, no hepatomegaly Extremities: no cyanosis, no clubbing, no edema Hosp A/P (1) COVID-19 virus infection Code(s): U07.1 - COVID-19 Status: Acute (2) Pneumonia Code(s): J18.9 - PNEUMONIA, UNSPECIFIED ORGANISM Status: Acute (3) DMII (diabetes mellitus, type 2) Status: Chronic (4) HTN (hypertension) Code(s): I10 - ESSENTIAL (PRIMARY) HYPERTENSION Status: Chronic - Plan * Pneumonia- COVID-19 positive-Continue supportive care- * Inflammatory marker are slightly improved * HTN- blood pressure is stable * DM- blood glucose is stable * Continue to monitor in the hospital due to multiple co-morbid conditions
[2020-02-17] MEDS: HumaLOG 300 UNITS/3 ML VIAL SC PRN (12:10)
[2020-02-17] MEDS: Amlodipine 5 MG TAB PO SCH (13:57)
[2020-02-17] MEDS: Melatonin 3 MG TAB PO SCH (20:02)
--- NOTE | 2020-02-18 07:40 | PRG ---
DATE OF SERVICE: 02/17/2020 SUBJECTIVE: Mr. Fish is feeling better, not coughing at all almost. No chest pain. No sputum production. No abdominal pain. No diarrhea. Sense of smell is normal. OBJECTIVE: VITAL SIGNS: He had a temperature of 100.1 yesterday, but now he is afebrile. The O2 saturations are better as they are up to 95% to 98% even on room air. Now he is on 2 L nasal cannula, and he he has been on 2 L since he came in here. Blood pressure 130/60 and pulse 78. GENERAL: No distress. Oriented. Follows commands. LUNGS: Clear to auscultation and percussion. HEART: S1 and S2, regular rate. ABDOMEN: Soft. Not distended or tender. EXTREMITIES: Moves all extremities equally. LABORATORY DATA: Sodium 139 and creatinine 0.74. Ferritin is down to 459 and CRP is down to 9.95. ASSESSMENT AND DISCUSSION: Type 2 diabetes; hypertension; bradycardia; pacemaker; COVID-19 pneumonia, moderate severity, with some improvement over the past 2 days and this is the 9th day of illness. If he continues to steadily improve, I believe by the 10th or 11th day of illness we should be able to consider discharge planning, which may be Friday or Friday. Job ID: [id number] [facility]
[2020-02-18] MEDS: Enoxaparin Sodium 40 MG/0.4 ML SYRINGE SC SCH (07:53)
[2020-02-18] MEDS: Simvastatin 20 MG TAB PO SCH (07:53)
[2020-02-18] MEDS: Ascorbic Acid 500 mg Chewable Tablet PO SCH (07:53)
[2020-02-18] MEDS: Aspirin Chewable 81 MG TAB PO SCH (07:54)
[2020-02-18] MEDS: Multivit, Therapeutic 1 TAB PO SCH (07:54)
[2020-02-18] MEDS: Famotidine 20 MG TAB PO SCH ×2 (07:54→21:18)
[2020-02-18] MEDS: Losartan 25 MG TAB PO SCH (07:54)
[2020-02-18] MEDS: Zinc Sulfate 220 MG CAP PO SCH (07:54)
--- NOTE | 2020-02-18 09:18 | PDOC.HOSPP ---
- Subjective Encounter Date: 02/18/20 Encounter Time: 09:16 Subjective: Mr. Fish was seen today in follow-up of COVID-19 pneumonia. He says he is doing " fine". He denies chest pain or difficulty breathing. He says he is coughing only " every now and then ". - Objective Vital Signs & Weight: Vital Signs (12 hours) Temp Pulse Resp BP BP Pulse Ox 02/18/20 08:00 97.7 F 78 18 174/80 H 93 L 02/18/20 04:00 98.6 F 68 16 157/65 H 92 L 02/17/20 23:57 98.2 F 68 16 148/68 H 92 L Weight Weight 160 lb 3.2 oz I&O: 02/17/20 02/18/20 02/19/20 06:59 06:59 06:59 Intake Total 480 450 Balance 480 450 Result Diagrams: 02/17/20 05:22 02/17/20 05:22 Additional Labs: Accuchecks 02/18/20 02/17/20 02/17/20 04:23 20:10 17:15 POC Glucose 143 H 159 H 103 02/17/20 02/17/20 11:05 04:44 POC Glucose 253 H 175 H Hospitalist ROS - Medication Medications: Active Medications Generic Name Dose Route Start Last Admin Trade Name Freq PRN Reason Stop Dose Admin Acetaminophen 650 mg 02/12/20 16:19 02/17/20 04:59 Tylenol PO 650 mg Q4H PRN Administration Headache/Fever or Pain Amlodipine Besylate 5 mg 02/15/20 15:00 02/17/20 13:57 Norvasc PO 5 mg 1500 SAUMYA Administration Ascorbic Acid 1,000 mg 02/16/20 09:00 02/18/20 07:53 Vitamin C PO 1,000 mg DAILY SAUMYA Administration Aspirin 81 mg 02/12/20 09:00 02/18/20 07:54 Aspirin Chewable PO 81 mg DAILY SAUMYA Administration Enoxaparin Sodium 40 mg 02/14/20 09:00 02/18/20 07:53 Lovenox SC 40 mg 0900 SAUMYA Administration Famotidine 20 mg 02/12/20 09:00 02/18/20 07:54 Pepcid PO 20 mg BID SAUMYA Administration Insulin Human Lispro 0 units 02/12/20 01:23 02/17/20 12:10 Humalog SC 4 unit .MILD SLIDING SCALE PRN Administration Mild Correctional Scale Losartan Potassium 50 mg 02/12/20 09:00 02/18/20 07:54 Cozaar PO 50 mg DAILY SAUMYA Administration Melatonin 3 mg 02/15/20 21:00 02/17/20 20:02 Melatonin PO 3 mg HS SAUMYA Administration Multivitamins 1 tab 02/16/20 09:00 02/18/20 07:54 Theragran PO 1 tab DAILY SAUMYA Administration Simvastatin 10 mg 02/12/20 09:00 02/18/20 07:53 Zocor PO 10 mg QAM SAUMYA Administration Zinc Sulfate 220 mg 02/16/20 09:00 02/18/20 07:54 Zinc Sulfate PO 220 mg DAILY SAUMYA Administration - Exam Eye: PERRL, anicteric sclera Heart: RRR, no murmur, no gallops, no rubs, normal peripheral pulses Respiratory: rales (Rales at both bases, no wheezing or rhonchi) Gastrointestinal: soft, non-tender, non-distended, normal bowel sounds, no palpable masses, no hepatomegaly Extremities: no cyanosis, no clubbing, no edema (palpable pulses bilaterally, no skin lesions) Hosp A/P (1) COVID-19 virus infection Code(s): U07.1 - COVID-19 Status: Acute (2) Pneumonia Code(s): J18.9 - PNEUMONIA, UNSPECIFIED ORGANISM Status: Acute (3) DMII (diabetes mellitus, type 2) Status: Chronic (4) HTN (hypertension) Code(s): I10 - ESSENTIAL (PRIMARY) HYPERTENSION Status: Chronic - Plan * Pneumonia- COVID-19 positive-Continue supportive care- * Will repeat inflammatory markers in the AM * HTN- blood pressure is stable * DM- blood glucose is stable * Continue to monitor in the hospital due to multiple co-morbid conditions * Possible home on Friday or Friday if he continues to have clinical stability/ improvement * He says he feels concerned about falling when he goes home. He says his legs at time will get weak, and sometimes he feels unsteady. It is just him and his grandson at home who helps care for him. He does not want to go to a [facility]. Will order a Hospital Bed, and Walker, to help prevent falls due to his osteoarthritis>
[2020-02-18] MEDS: HumaLOG 300 UNITS/3 ML VIAL SC PRN (12:31)
[2020-02-18] MEDS: Amlodipine 5 MG TAB PO SCH (16:41)
[2020-02-18] MEDS: Melatonin 3 MG TAB PO SCH (21:19)
[2020-02-19 05:37] LABS: Platelet Count 424 thou/uL (130-400)
[2020-02-19 05:40] LABS: Fibrinogen 687 mg/dL (253-463)
[2020-02-19 05:41] LABS: INR-International Normal Ratio 1.1; PTT 27.8 SEC (22.9-36.1); Prothrombin Time 13.9 SEC (12.0-14.7)
[2020-02-19 06:03] LABS: FSP-Qualitative ABNORMAL (Normal); FSP-Semiquantitative >=5 & <20 mcg/mL (Less than 5)
[2020-02-19 06:04] LABS: Anion Gap 13 mmol/L (10-20); BUN (Urea Nitrogen) 8 mg/dL (8.4-25.7); CRP (Inflammatory) 6.53 mg/dL (= or < 0.5); Calc. Creatinine Clearance 85 mL/min (70-130); Calcium 9.6 mg/dL (7.8-10.44); Carbon Dioxide 27 mmol/L (23-31); Chloride 104 mmol/L (98-107); Estimated GFR-MDRD Greater than 90; Glucose 138 mg/dL (83-110); Potassium 4.4 mmol/L (3.5-5.1); Sodium 140 mmol/L (136-145)
[2020-02-19 06:05] LABS: Hemoglobin 10.5 g/dL (14.0-18.0); Mean Corpuscular HGB CONC 31.5 g/dL (32.0-36.0); Mean Corpuscular Hemoglobin 28.2 pg (27.0-31.0); Mean Corpuscular Volume 89.3 fL (78.0-98.0); Platelet Count 425 thou/uL (130-400); RBC Distribution Width 14.3 % (11.5-14.5); Red Blood Cell (RBC) Count 3.71 mill/uL (4.70-6.10); White Blood Cell (WBC) Count 5.8 thou/uL (4.8-10.8)
[2020-02-19 06:06] LABS: Band 5 % (5-11); Eosinophils 1 % (0-10); Hypochromia SLIGHT = 6-15 cells (100X) (0-5/hpf); Lymphocytes 40 % (21-51); MDiff Complete? YES; Metamyelocyte 1 % (0-0); Monocytes 3 % (0-10); Neutrophil 50 % (42-75); Platelet Morphology Comment Appears Increased
[2020-02-19] MEDS: Enoxaparin Sodium 40 MG/0.4 ML SYRINGE SC SCH (08:18)
[2020-02-19] MEDS: Ascorbic Acid 500 mg Chewable Tablet PO SCH (08:18)
[2020-02-19] MEDS: Famotidine 20 MG TAB PO SCH ×2 (08:18→21:16)
[2020-02-19] MEDS: Zinc Sulfate 220 MG CAP PO SCH (08:18)
[2020-02-19] MEDS: Losartan 25 MG TAB PO SCH (08:19)
[2020-02-19] MEDS: Simvastatin 20 MG TAB PO SCH (08:19)
[2020-02-19] MEDS: Aspirin Chewable 81 MG TAB PO SCH (08:19)
[2020-02-19] MEDS: Multivit, Therapeutic 1 TAB PO SCH (08:19)
[2020-02-19] MEDS: Amlodipine 5 MG TAB PO SCH (13:58)
[2020-02-19] MEDS: HumaLOG 300 UNITS/3 ML VIAL SC PRN (17:45)
[2020-02-19] MEDS: Melatonin 3 MG TAB PO SCH (21:16)
[2020-02-20] MEDS: Enoxaparin Sodium 40 MG/0.4 ML SYRINGE SC SCH (07:53)
[2020-02-20] MEDS: Zinc Sulfate 220 MG CAP PO SCH (07:54)
[2020-02-20] MEDS: Multivit, Therapeutic 1 TAB PO SCH (07:54)
[2020-02-20] MEDS: Aspirin Chewable 81 MG TAB PO SCH (07:54)
[2020-02-20] MEDS: Ascorbic Acid 500 mg Chewable Tablet PO SCH (07:54)
[2020-02-20] MEDS: Simvastatin 20 MG TAB PO SCH (07:54)
[2020-02-20] MEDS: Losartan 25 MG TAB PO SCH (07:55)
[2020-02-20] MEDS: Famotidine 20 MG TAB PO SCH ×2 (07:55→20:50)
[2020-02-20] MEDS: HumaLOG 300 UNITS/3 ML VIAL SC PRN ×2 (12:15→17:27)
[2020-02-20] MEDS: Amlodipine 5 MG TAB PO SCH (15:45)
[2020-02-20] MEDS: Melatonin 3 MG TAB PO SCH (20:50)
--- NOTE | 2020-02-21 06:23 | PDOC.HOSPP ---
- Subjective Encounter Date: 02/19/20 Encounter Time: 16:00 Subjective: pt up in bed no complains - Objective Vital Signs & Weight: Vital Signs (12 hours) Temp Pulse Resp BP Pulse Ox 02/20/20 20:10 98.4 F 71 18 163/66 H 95 Weight Weight 160 lb 3.2 oz I&O: 02/19/20 02/20/20 02/21/20 06:59 06:59 06:59 Intake Total 800 Balance 800 Result Diagrams: 02/19/20 05:18 02/19/20 05:18 Additional Labs: Accuchecks 02/21/20 02/20/20 02/20/20 05:23 20:58 15:42 POC Glucose 163 H 177 H 208 H 02/20/20 02/20/20 11:13 05:55 POC Glucose 265 H 146 H Hospitalist ROS - Review of Systems Gastrointestinal: denies: nausea, vomiting, abdominal pain, diarrhea, constipation, melena, hematochezia, other Genitourinary: denies: dysuria, frequency, incontinence, hematuria, retention, other - Medication Medications: Active Medications Generic Name Dose Route Start Last Admin Trade Name Freq PRN Reason Stop Dose Admin Acetaminophen 650 mg 02/12/20 16:19 02/17/20 04:59 Tylenol PO 650 mg Q4H PRN Administration Headache/Fever or Pain Amlodipine Besylate 5 mg 02/15/20 15:00 02/20/20 15:45 Norvasc PO 5 mg 1500 SAUMYA Administration Ascorbic Acid 1,000 mg 02/16/20 09:00 02/20/20 07:54 Vitamin C PO 1,000 mg DAILY SAUMYA Administration Aspirin 81 mg 02/12/20 09:00 02/20/20 07:54 Aspirin Chewable PO 81 mg DAILY SAUMYA Administration Enoxaparin Sodium 40 mg 02/14/20 09:00 02/20/20 07:53 Lovenox SC 40 mg 0900 SAUMYA Administration Famotidine 20 mg 02/12/20 09:00 02/20/20 20:50 Pepcid PO 20 mg BID SAUMYA Administration Insulin Human Lispro 0 units 02/12/20 01:23 02/20/20 17:27 Humalog SC 3 unit .MILD SLIDING SCALE PRN Administration Mild Correctional Scale Losartan Potassium 50 mg 02/12/20 09:00 02/20/20 07:55 Cozaar PO 50 mg DAILY SAUMYA Administration Melatonin 3 mg 02/15/20 21:00 02/20/20 20:50 Melatonin PO 3 mg HS SAUMYA Administration Multivitamins 1 tab 02/16/20 09:00 02/20/20 07:54 Theragran PO 1 tab DAILY SAUMYA Administration Simvastatin 10 mg 02/12/20 09:00 02/20/20 07:54 Zocor PO 10 mg QAM SAUMYA Administration Zinc Sulfate 220 mg 02/16/20 09:00 02/20/20 07:54 Zinc Sulfate PO 220 mg DAILY SAUMYA Administration - Exam Neck: negative: supple, symmetric, no JVD, no thyromegaly, no lymphadenopathy, no carotid bruit, JVD Heart: negative: RRR, no murmur, no gallops, no rubs, normal peripheral pulses, irregular, diminshed peripheral pulses, murmur present, II/IV, III/IV Respiratory: negative: CTAB, no wheezes, no rales, no ronchi, normal chest expansion, no tachypnea, normal percussion, rales, rhonchi, tachypneic, wheezes Gastrointestinal: negative: soft, non-tender, non-distended, normal bowel sounds , no palpable masses, no hepatomegaly, no splenomegaly, no bruit, no guarding, no rigidity, tender to palpation, distended, diminished bowl sounds, voluntary guarding Hosp A/P (1) COVID-19 virus infection Code(s): U07.1 - COVID-19 Status: Acute (2) Sepsis Code(s): A41.9 - SEPSIS, UNSPECIFIED ORGANISM Status: Acute (3) Anemia Code(s): D64.9 - ANEMIA, UNSPECIFIED Status: Chronic (4) DMII (diabetes mellitus, type 2) Status: Chronic (5) HLD (hyperlipidemia) Code(s): E78.5 - HYPERLIPIDEMIA, UNSPECIFIED Status: Chronic (6) DM type 2 (diabetes mellitus, type 2) Status: Acute Qualifiers: Diabetes mellitus complication status: with hyperglycemia Qualified Code(s) : E11.65 - Type 2 diabetes mellitus with hyperglycemia (7) HTN (hypertension) Code(s): I10 - ESSENTIAL (PRIMARY) HYPERTENSION Status: Chronic Qualifiers: Hypertension type: essential hypertension Qualified Code(s): I10 - Essential (primary) hypertension - Plan will continue current tx. elevated d-dimer and fibrogen but clinically pt is doing well. spoke with ID for possible anticoagulation given increase risk of pe /dvt. However pt is asymptomatic and vitals do not indicate need for full anticoagulation. pt is not sob. will continue dvt ppx. He has been encouraged to do more exercises in bed,
--- NOTE | 2020-02-21 06:26 | PDOC.HOSPP ---
- Subjective Encounter Date: 02/20/20 Encounter Time: 17:00 Subjective: pt up in bed feels well no complains. Had a bm today. - Objective Vital Signs & Weight: Vital Signs (12 hours) Temp Pulse Resp BP Pulse Ox 02/20/20 20:10 98.4 F 71 18 163/66 H 95 Weight Weight 160 lb 3.2 oz I&O: 02/19/20 02/20/20 02/21/20 06:59 06:59 06:59 Intake Total 800 Balance 800 Result Diagrams: 02/19/20 05:18 02/19/20 05:18 Additional Labs: Accuchecks 02/21/20 02/20/20 02/20/20 05:23 20:58 15:42 POC Glucose 163 H 177 H 208 H 02/20/20 02/20/20 11:13 05:55 POC Glucose 265 H 146 H Hospitalist ROS - Review of Systems Respiratory: denies: cough, dry, shortness of breath, hemoptysis, SOB with excertion, pleuritic pain, sputum, wheezing, other Cardiovascular: denies: chest pain, palpitations, orthopnea, paroxysmal noc. dyspnea, edema, light headedness, other Gastrointestinal: denies: nausea, vomiting, abdominal pain, diarrhea, constipation, melena, hematochezia, other Genitourinary: denies: dysuria, frequency, incontinence, hematuria, retention, other - Medication Medications: Active Medications Generic Name Dose Route Start Last Admin Trade Name Freq PRN Reason Stop Dose Admin Acetaminophen 650 mg 02/12/20 16:19 02/17/20 04:59 Tylenol PO 650 mg Q4H PRN Administration Headache/Fever or Pain Amlodipine Besylate 5 mg 02/15/20 15:00 02/20/20 15:45 Norvasc PO 5 mg 1500 SAUMYA Administration Ascorbic Acid 1,000 mg 02/16/20 09:00 02/20/20 07:54 Vitamin C PO 1,000 mg DAILY SAUMYA Administration Aspirin 81 mg 02/12/20 09:00 02/20/20 07:54 Aspirin Chewable PO 81 mg DAILY SAUMYA Administration Enoxaparin Sodium 40 mg 02/14/20 09:00 02/20/20 07:53 Lovenox SC 40 mg 0900 [facility] Administration Famotidine 20 mg 02/12/20 09:00 02/20/20 20:50 Pepcid PO 20 mg BID SAUMYA Administration Insulin Human Lispro 0 units 02/12/20 01:23 02/20/20 17:27 Humalog SC 3 unit .MILD SLIDING SCALE PRN Administration Mild Correctional Scale Losartan Potassium 50 mg 02/12/20 09:00 02/20/20 07:55 Cozaar PO 50 mg DAILY SAUMYA Administration Melatonin 3 mg 02/15/20 21:00 02/20/20 20:50 Melatonin PO 3 mg HS SAUMYA Administration Multivitamins 1 tab 02/16/20 09:00 02/20/20 07:54 Theragran PO 1 tab DAILY SAUMYA Administration Simvastatin 10 mg 02/12/20 09:00 02/20/20 07:54 Zocor PO 10 mg QAM SAUMYA Administration Zinc Sulfate 220 mg 02/16/20 09:00 02/20/20 07:54 Zinc Sulfate PO 220 mg DAILY SAUMYA Administration - Exam Neck: negative: supple, symmetric, no JVD, no thyromegaly, no lymphadenopathy, no carotid bruit, JVD Heart: negative: RRR, no murmur, no gallops, no rubs, normal peripheral pulses, irregular, diminshed peripheral pulses, murmur present, II/IV, III/IV Respiratory: negative: CTAB, no wheezes, no rales, no ronchi, normal chest expansion, no tachypnea, normal percussion, rales, rhonchi, tachypneic, wheezes Gastrointestinal: negative: soft, non-tender, non-distended, normal bowel sounds , no palpable masses, no hepatomegaly, no splenomegaly, no bruit, no guarding, no rigidity, tender to palpation, distended, diminished bowl sounds, voluntary guarding Hosp A/P (1) COVID-19 virus infection Code(s): U07.1 - COVID-19 Status: Acute (2) Sepsis Code(s): A41.9 - SEPSIS, UNSPECIFIED ORGANISM Status: Acute (3) Anemia Code(s): D64.9 - ANEMIA, UNSPECIFIED Status: Chronic (4) DMII (diabetes mellitus, type 2) Status: Chronic (5) HLD (hyperlipidemia) Code(s): E78.5 - HYPERLIPIDEMIA, UNSPECIFIED Status: Chronic (6) DM type 2 (diabetes mellitus, type 2) Status: Acute Qualifiers: Diabetes mellitus complication status: with hyperglycemia Qualified Code(s) : E11.65 - Type 2 diabetes mellitus with hyperglycemia (7) HTN (hypertension) Code(s): I10 - ESSENTIAL (PRIMARY) HYPERTENSION Status: Chronic Qualifiers: Hypertension type: essential hypertension Qualified Code(s): I10 - Essential (primary) hypertension - Plan will continue current tx. elevated d-dimer and fibrogen but clinically pt is doing well. spoke with ID for possible anticoagulation given increase risk of pe /dvt. However pt is asymptomatic and vitals do not indicate need for full anticoagulation. pt is not sob. will continue dvt ppx. He has been encouraged to do more exercises in bed, 5/3 pt doing well possible discharge in am. senior case manager updated about pt's needs for discharge in am. vitals stable.
[2020-02-21] MEDS: Zinc Sulfate 220 MG CAP PO SCH (09:49)
[2020-02-21] MEDS: Ascorbic Acid 500 mg Chewable Tablet PO SCH (09:49)
[2020-02-21] MEDS: Aspirin Chewable 81 MG TAB PO SCH (09:49)
[2020-02-21] MEDS: Simvastatin 20 MG TAB PO SCH (09:49)
[2020-02-21] MEDS: Multivit, Therapeutic 1 TAB PO SCH (09:49)
[2020-02-21] MEDS: Losartan 25 MG TAB PO SCH (09:50)
[2020-02-21] MEDS: Famotidine 20 MG TAB PO SCH ×2 (09:50→21:22)
[2020-02-21] MEDS: Enoxaparin Sodium 40 MG/0.4 ML SYRINGE SC SCH (09:50)
[2020-02-21] MEDS: Amlodipine 5 MG TAB PO SCH (14:00)
--- NOTE | 2020-02-21 17:49 | PDOC.HOSPP ---
- Subjective Encounter Date: 02/21/20 Encounter Time: 16:00 Subjective: pt up in bed no complains. - Objective Vital Signs & Weight: Vital Signs (12 hours) Temp Pulse Resp BP Pulse Ox Pulse Ox Pulse Ox 02/21/20 16:06 83 L 94 L 02/21/20 14:05 98.3 F 72 20 173/70 H 95 02/21/20 10:00 98.6 F 74 20 165/73 H 95 Pulse Ox 02/21/20 16:06 98 02/21/20 14:05 02/21/20 10:00 Weight Weight 160 lb 3.2 oz I&O: 02/20/20 02/21/20 02/22/20 06:59 06:59 06:59 Intake Total 800 Balance 800 Result Diagrams: 02/19/20 05:18 02/19/20 05:18 Additional Labs: Accuchecks 02/21/20 02/21/20 02/20/20 11:37 05:23 20:58 POC Glucose 196 H 163 H 177 H Hospitalist ROS - Review of Systems Respiratory: denies: cough, dry, shortness of breath, hemoptysis, SOB with excertion, pleuritic pain, sputum, wheezing, other Cardiovascular: denies: chest pain, palpitations, orthopnea, paroxysmal noc. dyspnea, edema, light headedness, other Gastrointestinal: denies: nausea, vomiting, abdominal pain, diarrhea, constipation, melena, hematochezia, other - Medication Medications: Active Medications Generic Name Dose Route Start Last Admin Trade Name Freq PRN Reason Stop Dose Admin Acetaminophen 650 mg 02/12/20 16:19 02/17/20 04:59 Tylenol PO 650 mg Q4H PRN Administration Headache/Fever or Pain Amlodipine Besylate 5 mg 02/15/20 15:00 02/21/20 14:00 Norvasc PO 5 mg 1500 SAUMYA Administration Ascorbic Acid 1,000 mg 02/16/20 09:00 02/21/20 09:49 Vitamin C PO 1,000 mg DAILY SAUMYA Administration Aspirin 81 mg 02/12/20 09:00 02/21/20 09:49 Aspirin Chewable PO 81 mg DAILY SAUMYA Administration Enoxaparin Sodium 40 mg 02/14/20 09:00 02/21/20 09:50 Lovenox SC 40 mg 0900 [facility] Administration Famotidine 20 mg 02/12/20 09:00 02/21/20 09:50 Pepcid PO 20 mg BID SAUMYA Administration Insulin Human Lispro 0 units 02/12/20 01:23 02/20/20 17:27 Humalog SC 3 unit .MILD SLIDING SCALE PRN Administration Mild Correctional Scale Losartan Potassium 50 mg 02/12/20 09:00 02/21/20 09:50 Cozaar PO 50 mg DAILY SAUMYA Administration Melatonin 3 mg 02/15/20 21:00 02/20/20 20:50 Melatonin PO 3 mg HS SAUMYA Administration Multivitamins 1 tab 02/16/20 09:00 02/21/20 09:49 Theragran PO 1 tab DAILY SAUMYA Administration Simvastatin 10 mg 02/12/20 09:00 02/21/20 09:49 Zocor PO 10 mg QAM SAUMYA Administration Zinc Sulfate 220 mg 02/16/20 09:00 02/21/20 09:49 Zinc Sulfate PO 220 mg DAILY SAUMYA Administration - Exam Heart: negative: RRR, no murmur, no gallops, no rubs, normal peripheral pulses, irregular, diminshed peripheral pulses, murmur present, II/IV, III/IV Respiratory: negative: CTAB, no wheezes, no rales, no ronchi, normal chest expansion, no tachypnea, normal percussion, rales, rhonchi, tachypneic, wheezes Gastrointestinal: negative: soft, non-tender, non-distended, normal bowel sounds , no palpable masses, no hepatomegaly, no splenomegaly, no bruit, no guarding, no rigidity, tender to palpation, distended, diminished bowl sounds, voluntary guarding Extremities: negative: no cyanosis, no clubbing, no edema, 1+ LE edema, 2+ LE edema, clubbing Hosp A/P (1) COVID-19 virus infection Code(s): U07.1 - COVID-19 Status: Acute (2) Sepsis Code(s): A41.9 - SEPSIS, UNSPECIFIED ORGANISM Status: Acute (3) Anemia Code(s): D64.9 - ANEMIA, UNSPECIFIED Status: Chronic (4) DMII (diabetes mellitus, type 2) Status: Chronic (5) HLD (hyperlipidemia) Code(s): E78.5 - HYPERLIPIDEMIA, UNSPECIFIED Status: Chronic (6) DM type 2 (diabetes mellitus, type 2) Status: Acute Qualifiers: Diabetes mellitus complication status: with hyperglycemia Qualified Code(s) : E11.65 - Type 2 diabetes mellitus with hyperglycemia (7) HTN (hypertension) Code(s): I10 - ESSENTIAL (PRIMARY) HYPERTENSION Status: Chronic Qualifiers: Hypertension type: essential hypertension Qualified Code(s): I10 - Essential (primary) hypertension - Plan will continue current tx. elevated d-dimer and fibrogen but clinically pt is doing well. spoke with ID for possible anticoagulation given increase risk of pe /dvt. However pt is asymptomatic and vitals do not indicate need for full anticoagulation. pt is not sob. will continue dvt ppx. He has been encouraged to do more exercises in bed, 5/3 pt doing well possible discharge in am. case hardener updated about pt's needs for discharge in am. vitals stable. 5/4 pt's oxygen sat was checked and he did desat in the 88%, spoke with ID who felt pt will be back since he will be going home and not sure if family capable to taking care of the patient. will give him a dose of lasix and give him a IS to see if this help. will get a cxr in am. clinically pt feels well. No [facility]dc will take the pt even if the pt agrees since they will need 2 negative COVID.
[2020-02-21] MEDS: Melatonin 3 MG TAB PO SCH (21:22)
[2020-02-22 06:30] VITALS: TEMP 98.3
[2020-02-22] MEDS ORDERED: Furosemide 40 MG TAB PO SCH (07:30)
[2020-02-22] MEDS: Famotidine 20 MG TAB PO SCH (08:43)
[2020-02-22] MEDS: Losartan 25 MG TAB PO SCH (08:43)
[2020-02-22] MEDS: Simvastatin 20 MG TAB PO SCH (08:44)
[2020-02-22] MEDS: Aspirin Chewable 81 MG TAB PO SCH (08:44)
[2020-02-22] MEDS: Ascorbic Acid 500 mg Chewable Tablet PO SCH (08:44)
[2020-02-22] MEDS: Enoxaparin Sodium 40 MG/0.4 ML SYRINGE SC SCH (08:44)
[2020-02-22] MEDS: Multivit, Therapeutic 1 TAB PO SCH (08:44)
[2020-02-22] MEDS: Zinc Sulfate 220 MG CAP PO SCH (08:45)
[2020-02-22 09:21] VITALS: BP 159/68
[2020-02-22] MEDS: HumaLOG 300 UNITS/3 ML VIAL SC PRN (11:46)
[2020-02-22] MEDS: Amlodipine 5 MG TAB PO SCH (16:06)
[2020-02-23] MEDS ORDERED: Amlodipine 5 MG TAB PO SCH (09:00)
--- NOTE | 2020-02-23 10:54 | DIS ---
DATE OF ADMISSION: 02/11/2020 DATE OF DISCHARGE: 02/22/2020 DISCHARGE DIAGNOSES: As of the followin. Shortness of breath, most likely secondary to COVID positive. 2. Pneumonia. 3. Sepsis. 4. Hyperkalemia. 5. Anemia. 6. Hyperlipidemia. 7. Acute hypoxia. HOSPITAL COURSE: The patient is an 84-year-old male, who initially presented to the hospital with complaints of shortness of breath x2 days. He denies any recent travels or sick contacts. At this time, COVID test was positive. He also was febrile. Chest x-ray indicated patchy interstitial opacities. The patient was seen by Infectious Disease. While he was in the hospital, he continued to improve through the hospital stay. He did require oxygen on discharge. The patient did not want to go into a intermediate facility and also there was some setbacks in regard to having . The patient at this time was ambulated in the room. He was seen by Physical therapy. He was also evaluated for oxygen needs and was requiring oxygen. The patient also was provided with home care services for further evaluation. He then was discharged home and he will follow up with his primary care in 1-2 weeks. He was initially put on azithromycin and ceftriaxone, which were discontinued. HOME MEDICATIONS: Resumed and they were: 1. Actos 15 mg daily. 2. Iron 325 twice daily. 3. Aspirin 81 mg daily. 4. Losartan 50 mg daily. 5. Metformin 1000 b.i.d. 6. Simvastatin 20 mg daily. 7. Amlodipine 5 mg daily. PHYSICAL EXAMINATION: VITAL SIGNS: Temperature 98.3, 62, 18, 98% on 2 L and 159/68. GENERAL: He is awake, alert, and oriented. He has no pain distress. CV: S1, S2 present. No murmurs, rubs, or gallops. ABDOMEN: Soft and nontender. Bowel sounds are present x2. EXTREMITIES: No edema. PLAN: I have encouraged the patient to keep his oxygen on at all times. He did have some elevated D-dimer and also increased the fibrinogen; however he was never having any significant shortness of breath through the hospital stay. He was not tachypneic, was not tachycardic. He was put on DVT prophylaxis throughout the whole hospital stay here. I also have provided him with incentive spirometer to prevent any atelectasis. The patient again will be discharged home. He will follow up with primary care. Job ID: [id number]
== END 2020-02-22 17:27 | disposition home or self-care (01) | DRG 871 ==
LOC: ERS 21:13 → T4-B 22:36 → OBSVTOIN 22:36
PROVIDERS: ADMIT Internal Medicine; ATTEND Internal Medicine
PROC: 8E0ZXY6 Isolation (ICD-10-PCS; principal; 2020-02-11)
DX: A41.89 Other specified sepsis (principal); U07.1 COVID-19; J12.89 Other viral pneumonia; E87.2 Acidosis; E78.5 Hyperlipidemia, unspecified; E78.00 Pure hypercholesterolemia, unspecified; I10 Essential (primary) hypertension; E87.5 Hyperkalemia; F17.210 Nicotine dependence, cigarettes, uncomplicated; N40.0 Benign prostatic hyperplasia without lower urinary tract symptoms; K57.30 Diverticulosis of large intestine without perforation or abscess without bleeding; I25.5 Ischemic cardiomyopathy; D64.9 Anemia, unspecified; M19.90 Unspecified osteoarthritis, unspecified site; E11.65 Type 2 diabetes mellitus with hyperglycemia; Z79.82 Long term (current) use of aspirin; Z95.0 Presence of cardiac pacemaker; Z79.84 Long term (current) use of oral hypoglycemic drugs; Z79.899 Other long term (current) drug therapy; Z79.4 Long term (current) use of insulin
CPT/HCPCS: 36415; 36416; 80048; 80053; 82728; 85025; 85049; 85300; 85362; 85379; 85384; 85610; 85730; 86140; 87635; 99285; J0456; J0696; J1650; J3490; J7050; U0003